=== PATIENT | female | born 1965 | race Caucasian/White ===

== ENCOUNTER 2023-11-27 08:24 | Emergency (ER) | payer OTHER ==
[~2023-11-27] VITALS: Ht 167.6 cm; Wt 80.0 kg
[2023-11-27 08:34] VITALS: O2SAT 98
[2023-11-27] MEDS: ACETAMINOPHEN 325MG TABLET PO ONE (09:05)
[2023-11-27] MEDS: IBUPROFEN 600MG TABLET PO ONE (10:06)
[2023-11-27 10:25] VITALS: BP 147/98; PULSE 95; RESP 18; TEMP 98.4
== END 2023-11-27 10:25 | disposition home or self-care (01) ==
LOC: ER 08:24
DX: R51.9 Headache, unspecified (principal)
CPT/HCPCS: 99283